=== PATIENT | female | born 1955 | race Hispanic/Latino ===

== ENCOUNTER 2021-02-04 05:48 | Emergency (ER) | payer MEDICARE ==
[2021-02-04] MEDS ORDERED: MORPHINE 4 MG/1 ML INJ IV ONE ×2 (07:36→10:44)
[2021-02-04] MEDS ORDERED: SODIUM CHLORIDE 0.9% 1000 ML 1,000 ML IV ONE ×2 (07:36→10:44)
[2021-02-04] MEDS ORDERED: ONDANSETRON 4 MG/2 ML INJ IV ONE ×2 (07:36→10:44)
--- NOTE | 2021-02-04 07:37 | Emergency Department Report ---
ED N/V/D HPI - General Chief complaint: Abdominal Pain Stated complaint: DEHYDRATION/VOMITING BILE Time Seen by Provider: 02/04/21 07:26 Source: patient Mode of arrival: Ambulatory Limitations: No Limitations - History of Present Illness Initial comments: 66-year-old female with a past medical history of hypertension presents to the ER today with complaints of nausea, vomiting and upper abdominal pain. Patient states that her symptoms started about 3 days ago. She states that her symptoms was initially mild, but yesterday became worse. She states that she has been vomiting multiple times since yesterday. She states that emesis was initially mainly clear liquid, but now is bilious. She states that she has been having intermittent watery stools. She denies any hematemesis, coffee-ground emesis, hematochezia, melena or mucus in her stools. She reports associated upper abdominal pain which has been constant but waxes and wanes Patient denies any fever. She denies any dysuria urinary frequency ad she reports generalized weakness and feels like she is dehydrated.. She states that her grandson was sick with vomiting, and he was diagnosed with COVID-19 last week Tuesday. She states that she did not get a test for COVID-19 since she has been sick. She also has not gotten any of the COVID-19 vaccines. She states that she has had a intermittent dry cough but no other URI symptoms. she denies any associated chest pain or shortness of breath or wheezing. Abdominal surgeries include status post appendectomy and status post hysterectomy. MD complaint: nausea, vomiting, diarrhea, abdominal pain -: Gradual - Related Data Previous Rx's Medication Instructions Recorded Last Taken Type Azithromycin [Zithromax Z-LUCY] 250 mg PO DAILY #1 pack 02/04/21 Unknown Rx Hyoscyamine Subl [Levsin Sl 0.125 0.125 mg SL Q6HR PRN #20 tab 02/04/21 Unknown Rx TAB] Ondansetron [Zofran Odt] 4 mg PO Q8HR PRN #15 tab.rapdis 02/04/21 Unknown Rx Allergies Allergy/AdvReac Type Severity Reaction Status Date / Time No Known Allergies Allergy Verified 02/04/21 07:35 ED Review of Systems ROS: Stated complaint: DEHYDRATION/VOMITING BILE Other details as noted in HPI Comment: All other systems reviewed and negative Constitutional: denies: chills, fever Respiratory: denies: cough, shortness of breath, SOB with exertion, SOB at rest, wheezing Cardiovascular: denies: chest pain, palpitations, dyspnea on exertion, edema, syncope, paroxysmal nocturnal dyspnea Gastrointestinal: abdominal pain, nausea, vomiting, diarrhea. denies: hemateme sis, melena, hematochezia Genitourinary: denies: urgency, dysuria, discharge Musculoskeletal: denies: back pain, joint swelling, arthralgia Skin: denies: rash, lesions Neurological: weakness. denies: headache, numbness, paresthesias, confusion, abnormal gait, vertigo Psychiatric: denies: anxiety, depression, auditory hallucinations, visual hallucinations, homicidal thoughts, suicidal thoughts ED Past Medical Hx - Medications Home Medications: Home Medications Medication Instructions Recorded Confirmed Last Taken Type Azithromycin [Zithromax Z-LUCY] 250 mg PO DAILY #1 pack 02/04/21 Unknown Rx Hyoscyamine Subl [Levsin Sl 0.125 0.125 mg SL Q6HR PRN #20 tab 02/04/21 Unknown Rx TAB] Ondansetron [Zofran Odt] 4 mg PO Q8HR PRN #15 tab.rapdis 02/04/21 Unknown Rx ED Physical Exam - General Limitations: No Limitations General appearance: alert, in no apparent distress, other (pt appears generally weak) - Head Head exam: Present: atraumatic, normocephalic, normal inspection - Eye Eye exam: Present: normal appearance, PERRL, EOMI Pupils: Present: normal accommodation - ENT ENT exam: Present: mucous membranes dry - Expanded ENT Exam Expanded Mouth exam: Present: normal external inspection - Neck Neck exam: Present: normal inspection, full ROM. Absent: meningismus - Respiratory Respiratory exam: Present: normal lung sounds bilaterally. Absent: respiratory distress, wheezes, rales, rhonchi, stridor - Cardiovascular Cardiovascular Exam: Present: regular rate, normal rhythm, normal heart sounds - GI/Abdominal GI/Abdominal exam: Present: soft, tenderness (epigastric), guarding (epigastric ). Absent: distended - Neurological Exam Neurological exam: Present: alert, oriented X3, CN II-XII intact, normal gait - Psychiatric Psychiatric exam: Present: normal affect, normal mood - Skin Skin exam: Present: intact ED Course Vital Signs 02/04/21 02/04/21 07:26 12:05 Temperature 99.4 F 99.6 F Pulse Rate 94 H 91 H Respiratory 16 14 Rate Blood Pressure 168/82 Blood Pressure 138/67 [Right] O2 Sat by Pulse 97 97 Oximetry ED Medical Decision Making - Lab Data Result diagrams: 02/04/21 07:45 02/04/21 07:45 - Radiology Data Radiology results: report reviewed Patient: TIM CASTELLANOS MR#: [id number] 41 : 1955 Acct:[id number] Age/Sex: 66 / F ADM Date: 02/04/21 Loc: ED Attending Dr: Ordering Physician: RISHABH GARCIA Date of Service: 02/04/21 Procedure(s): XR chest routine 2V Accession Number(s): [id number] cc: RISHABH GARCIA Fluoro Time In Minutes: CHEST 2 VIEWS INDICATION: cough. COMPARISON: None FINDINGS: Support devices: None. Heart: Within normal limits. Lungs/pleura: No acute air space or interstitial disease. No pneumothorax. Additional findings: None. IMPRESSION: No acute findings. Signer Name: Andrews Kendrick Jr, MD Signed: 02/04/2021 10:53 AM Workstation Name: [id number] Transcribed By: TTR Dictated By: ANDREWS KENDRICK JR, MD Electronically Authenticated By: ANDREWS KENDRICK JR, MD Signed Date/Time: 02/04/21 105 DD/ 1053 TD/TT: Patient: TIM CASTELLANOS MR#: [id number] 41 : 1955 Acct:[id number] Age/Sex: 66 / F ADM Date: 02/04/21 Loc: ED Attending Dr: Ordering Physician: RISHABH GARCIA Date of Service: 02/04/21 Procedure(s): CT abdomen pelvis w con Accession Number(s): [id number] cc: RISHABH GARCIA CT ABDOMEN AND PELVIS WITH IV CONTRAST INDICATION: Upper abdominal pain, nausea vomiting 100ml of omnipaque 300 given. COMPARISON: None available. TECHNIQUE: All CT scans at this facility use dose modulation, automated exposure control, iterative reconstruction or weight based dosing, when appropriate, to reduce radiation dose to as low as reasonably achievable. FINDINGS: Lung Bases: There are patchy predominantly peripheral groundglass opacities in the lung bases concerning for pneumonia, possibly COVID. Skeletal System: No acute abnormality. ABDOMEN: Liver: No significant abnormality. Gallbladder: No significant abnormality. Bile Ducts: No significant abnormality. Pancreas: No significant abnormality. Spleen: No significant abnormality. Adrenals: No significant abnormality. Right Kidney: No significant abnormality. Left Kidney: No significant abnormality. Upper GI tract: Small hiatal hernia. No acute abnormality. Lymph Nodes: No significant adenopathy. Aorta: No significant abnormality. Additional Findings: No significant abnormality. PELVIS: Colon: No acute abnormality. Urinary Bladder and Distal Ureters: No significant abnormality. Appendix: Not visualized. Lymph Nodes: No significant adenopathy. Additional Findings: None. IMPRESSION: 1. No acute process in the abdomen or pelvis. 2. Bibasilar patchy groundglass opacities concerning for pneumonia, possibly COVID. Signer Name: Jas Griffin MD Signed: 02/04/2021 10:25 AM Workstation Name: [email or web address] Transcribed By: GABBIE Dictated By: Jas Griffin MD Electronically Authenticated By: Jas Griffin MD Signed Date/Time: 02/04/21 1025 DD/ 1021 TD/TT: - Medical Decision Making Patient currently resting comfortably. She reports feeling much better after IV fluids, pain meds and nausea medication. She has not had any vomiting or diarrhea during stay. She is currently not toxic, not in any distress and is neurologically intact with a normal gait. Repeat abdominal exam shows a soft nontender abdomen. All labs reviewed -CBC unremarkable, CMP shows mild elevation in AST and alk phos, but otherwise unremarkable; lipase negative; urinalysis shows that she has 63 WBCs, 29 epis, but no nitrites or leukocytes and no bacteria. Plus patient has no symptoms of a UTI. This likely is more contamination. CT abdomen and pelvis shows no acute intra-abdominal abnormalities but did show Bibasilar patchy groundglass opacities concerning for pneumonia, possibly COVID. Chest x- ray shows nothing acute. Discussed all labs, chest x-ray results and CT findings with patient. Informed her that since she was exposed to her grandson who was Covid positive and she did have CT findings concerning for Covid pneumonia, it is recommended that she get an outpatient Covid test. In the meantime she will be started on Zithromax, as well as medication to help her GI symptoms which I suspect is viral in nature and could also be related to the Covid. Patient repeat vital signs are stable, she is afebrile, not tachycardic or tachypneic or hypoxic. She has no complaints of chest pain or shortness of breath. At this time there is no indication for any additional testing, or admission to the hospital. Worsening signs and symptoms and what to return to the ER for was discussed with patient. Patient expressed understanding of all instructions and agree with plan. Patient was stable at time of discharge. Critical care attestation.: If time is entered above; I have spent that time in minutes in the direct care of this critically ill patient, excluding procedure time. 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 I do recommend that once you leave here today you follow-up with one of the local clinics given to you on that place for an outpatient COVID-19 test. I recommend that you quarantine until you know the results of your COVID-19 test. Take the Zithromax as prescribed. I r ecommend that you take the zofran as prescribed and as needed for nausea or vomiting, and take the Levsin as prescribed and as needed for any abdominal cramps. You can take Imodium from [id number] to help with any diarrhea. Mucinex or Robitussin to help with any cough. I recommend that you drink lots of fluids to maintain hydration. You can do a bland diet as listed on your discharge instructions. Recommend rest. Follow-up with your PCP. Return to the ER if your symptoms changes or worsens in any way. Prescriptions: Hyoscyamine Subl [Levsin Sl 0.125 TAB] 0.125 mg SL Q6HR PRN #20 tab PRN Reason: abdominal cramp Azithromycin [Zithromax Z-LUCY] 250 mg PO DAILY #1 pack Ondansetron [Zofran Odt] 4 mg PO Q8HR PRN #15 tab.rapdis PRN Reason: Nausea And Vomiting Referrals: [facility] [Provider Group] - 3-5 Days PRIMARY [facility]ARE,MD [Primary Care Provider] - 3-5 Days Forms: Work/School Release Form(ED) Time of Disposition: 12:22
[2021-02-04 08:33] LABS: Basophils % (Auto) 0.4 % (0.0-1.8); Hemoglobin 13.3 gm/dl (10.1-14.3); Lymphocytes # (Auto) 0.8 K/mm3 (1.2-5.4); Lymphocytes % (Auto) 14.6 % (13.4-35.0); Mean Corpuscular HGB Conc 35 % (30-34); Mean Corpuscular Volume 88 fl (79-97); Monocytes # (Auto) 0.3 K/mm3 (0.0-0.8); Monocytes % (Auto) 6.3 % (0.0-7.3); Platelet Count 292 K/mm3 (140-440); Red Blood Count 4.33 M/mm3 (3.65-5.03); Red Cell Distribution Width 13.9 % (13.2-15.2)
[2021-02-04 08:56] LABS: Alanine Aminotransferase 33 units/L (7-56); Albumin 4.4 g/dL (3.9-5); Blood Urea Nitrogen 8 mg/dL (7-17); Calcium 9.1 mg/dL (8.4-10.2); Hemolysis Index 11
[2021-02-04 09:38] LABS: BUN/Creatinine Ratio 16; Bilirubin,Direct < 0.2 mg/dL (0-0.2)
--- NOTE | 2021-02-04 10:30 | Cat Scan Report ---
CT ABDOMEN AND PELVIS WITH IV CONTRAST INDICATION: Upper abdominal pain, nausea vomiting 100ml of omnipaque 300 given. COMPARISON: None available. TECHNIQUE: All CT scans at this facility use dose modulation, automated exposure control, iterative reconstructi on or weight based dosing, when appropriate, to reduce radiation dose to as low as reasonably achieva ble. FINDINGS: Lung Bases: There are patchy predominantly peripheral groundglass opacities in the lung bases concern ing for pneumonia, possibly COVID. Skeletal System: No acute abnormality. ABDOMEN: Liver: No significant abnormality. Gallbladder: No significant abnormality. Bile Ducts: No significant abnormality. Pancreas: No significant abnormality. Spleen: No significant abnormality. Adrenals: No significant abnormality. Right Kidney: No significant abnormality. Left Kidney: No significant abnormality. Upper GI tract: Small hiatal hernia. No acute abnormality. Lymph Nodes: No significant adenopathy. Aorta: No significant abnormality. Additional Findings: No significant abnormality. PELVIS: Colon: No acute abnormality. Urinary Bladder and Distal Ureters: No significant abnormality. Appendix: Not visualized. Lymph Nodes: No significant adenopathy. Additional Findings: None. IMPRESSION: 1. No acute process in the abdomen or pelvis. 2. Bibasilar patchy groundglass opacities concerning for pneumonia, possibly COVID. Signer Name: Jas Griffin MD Signed: 02/04/2021 10:25 AM Workstation Name: [email or web address]
--- NOTE | 2021-02-04 10:58 | XRay Report ---
CHEST 2 VIEWS INDICATION: cough. COMPARISON: None FINDINGS: Support devices: None. Heart: Within normal limits. Lungs/pleura: No acute air space or interstitial disease. No pneumothorax. Additional findings: None. IMPRESSION: No acute findings. Signer Name: Andrews Kendrick Jr, MD Signed: 02/04/2021 10:53 AM Workstation Name: [id number]
[2021-02-04 12:06] VITALS: BP 138/67
[2021-02-04 12:53] LABS: Bilirubin,Urine NEG (Negative); Blood,Urine NEG (Negative); Color,Urine Yellow (Yellow); Mucus,Urine FEW /HPF; Urobilinogen,Urine < 2.0 mg/dL (<2.0)
== END 2021-02-04 13:18 | disposition home or self-care (01) ==
LOC: ED 05:48
DX: J18.9 Pneumonia, unspecified organism (principal); B34.9 Viral infection, unspecified; R11.2 Nausea with vomiting, unspecified; Z20.822 Contact with and (suspected) exposure to COVID-19
CPT/HCPCS: 36415; 71046; 74177; 80048; 80076; 81001; 83690; 85025; 87086; 96361; 96374; 96375; 99284; J2270; J2405; J7030; Q9967